=== PATIENT | male | born 1955 | race Caucasian/White ===

== ENCOUNTER 2017-05-07 08:38 | Observation (INO) | payer OTHER ==
[~2017-05-07] VITALS: Ht 182.9 cm; Wt 134.3 kg
[2017-05-07] MEDS ORDERED: SODIUM CHLORIDE 0.9% 1000ML 1,000 ML IV STA (08:50)
--- NOTE | 2017-05-07 08:56 | EMERGENCY ROOM VISIT NOTE ---
History Report prepared by Debra: Kimi Burt Under the Supervision of: Dr. Porter Jeter M.D. First contact with patient: 08:41 Chief Complaint: CHEST PAIN Stated Complaint: CHEST PAIN/DIAPHORETIC History of Present Illness The patient is a 61 year old male who presents to the Emergency Room with complaints of a resolved episode of chest pain that began this morning. The patient states that he was at work this morning drinking coffee when he became diaphoretic. He states that he went to the nurse's office and was given 324 mg of Aspirin. Per EMS the patient was hypotensive upon arrival so they did not administrate any nitroglycerin. The patient states that his pain was alleviated with the aspirin. He states that his last stress test was 10 years ago. The patient states that he is not physically active. He denies any pertinent family history. Source of History: patient Onset: this morning Position: chest Timing: resolved Modifying Factors (Relieving): other (aspirin) Associated Symptoms: + diaphoresis Review of Systems See HPI for pertinent positives & negatives. A total of 10 systems reviewed and were otherwise negative. Past Medical & Surgical Medical Problems: (1) Acute gouty arthritis (2) Chest pain (3) Dyslipidemia (4) Elbow pain, right (5) Gout (6) History of stress test (7) HTN (hypertension) Surgical Problems: (1) History of appendectomy Family History Patient reports no known family medical history. Social History Smoking Status: Never Smoker Alcohol Use: occasionally Drug Use: none Housing Status: lives with family Occupation Status: employed Current/Historical Medications Scheduled Allopurinol (Zyloprim), 2 TABS PO BID Amlodipine (Norvasc), 5 MG PO DAILY Ferrous Sulfate (Kp Ferrous Sulfate), 325 MG PO BID Lisinopril (Zestril), 20 MG PO DAILY Miscellaneous Medications Colchicine (Colchicine), 1 TABS PO Sulindac (Sulindac), 1 TAB PO Allergies Coded Allergies: No Known Allergies (Unverified , none, 09/15/15) Physical Exam Vital Signs Date Time Temp Pulse Resp B/P (MAP) Pulse Ox O2 Delivery O2 Flow Rate FiO2 05/07/17 10:35 97 Room Air 05/07/17 10:02 91 20 119/74 97 Room Air 05/07/17 08:45 97 Room Air 05/07/17 08:45 36.8 98 18 117/77 97 Room Air 05/07/17 08:45 100 Physical Exam GENERAL: Patient is a healthy-appearing well-nourished male HEAD: Normocephalic atraumatic EYES: Ocular movements intact pupils equal and react to light OROPHARYNX mucous membranes are moist no exudates present no erythema or edema present NECK: Supple no nuchal rigidity CHEST: Good equal expansion LUNGS: Clear and equal to auscultation CARDIAC: Normal S1 and S2 ABDOMEN: Soft nontender no guarding BACK: No CVA tenderness EXTREMITIES: No pain upon palpation normal muscle strength in all groups no clubbing cyanosis or edema NEURO: Patient is following commands and answering questions appropriately. Alert and oriented x3 Cranial Nerves 2-12 grossly intact Medical Decision & Procedures ER Provider Diagnostic Interpretation: X-ray results as stated below per interpretation by me and the radiologist: CHEST ONE VIEW PORTABLE HISTORY: Atypical CHEST PAIN COMPARISON: Chest 08/14/2008. FINDINGS: The lungs are clear. The heart remains mildly enlarged. No pleural effusions. No pneumothorax. IMPRESSION: Stable mild cardiomegaly. Electronically signed by: Edil Cheng M.D. 05/07/2017 9:39 AM Dictated Date/Time: 05/07/2017 9:37 AM Laboratory Results 05/07/17 08:55 Red Blood Count 5.00, Mean Corpuscular Volume 88.0, Mean Corpuscular Hemoglobin 28.4, Mean Corpuscular Hemoglobin Concent 32.3, Mean Platelet Volume 9.2, Neutrophils (%) (Auto) 66.5, Lymphocytes (%) (Auto) 23.4, Monocytes (%) (Auto) 6.3, Eosinophils (%) (Auto) 2.7, Basophils (%) (Auto) 0.6, Neutrophils # (Auto) 7.38, Lymphocytes # (Auto) 2.60, Monocytes # (Auto) 0.70, Eosinophils # (Auto) 0.30, Basophils # (Auto) 0.07 05/07/17 08:55 Test 05/07/17 08:55 White Blood Count 11.10 K/uL (4.8-10.8) Red Blood Count 5.00 M/uL (4.7-6.1) Hemoglobin 14.2 g/dL (14.0-18.0) Hematocrit 44.0 % (42-52) Mean Corpuscular Volume 88.0 fL (80-100) Mean Corpuscular Hemoglobin 28.4 pg (25-34) Mean Corpuscular Hemoglobin Concent 32.3 g/dl (32-36) Platelet Count 400 K/uL (130-400) Mean Platelet Volume 9.2 fL (7.4-10.4) Neutrophils (%) (Auto) 66.5 % Lymphocytes (%) (Auto) 23.4 % Monocytes (%) (Auto) 6.3 % Eosinophils (%) (Auto) 2.7 % Basophils (%) (Auto) 0.6 % Neutrophils # (Auto) 7.38 K/uL (1.4-6.5) Lymphocytes # (Auto) 2.60 K/uL (1.2-3.4) Monocytes # (Auto) 0.70 K/uL (0.11-0.59) Eosinophils # (Auto) 0.30 K/uL (0-0.5) Basophils # (Auto) 0.07 K/uL (0-0.2) RDW Standard Deviation 51.3 fL (36.4-46.3) RDW Coefficient of Variation 16.1 % (11.5-14.5) Immature Granulocyte % (Auto) 0.5 % Immature Granulocyte # (Auto) 0.05 K/uL (0.00-0.02) Anion Gap 6.0 mmol/L (3-11) Est Creatinine Clear Calc Drug Dose 80.6 ml/min Estimated GFR () 63.3 Estimated GFR (Non- 54.6 BUN/Creatinine Ratio 10.4 (10-20) Calcium Level 8.9 mg/dl (8.5-10.1) Total Bilirubin 0.4 mg/dl (0.2-1) Direct Bilirubin < 0.1 mg/dl (0-0.2) Aspartate Amino Transf (AST/SGOT) 20 U/L (15-37) Alanine Aminotransferase (ALT/SGPT) 32 U/L (12-78) Alkaline Phosphatase 78 U/L (45-117) Total Creatine Kinase 101 U/L (39-308) Creatine Kinase MB 1.0 ng/ml (0.5-3.6) Creatine Kinase MB Ratio 1.0 (0-3.0) Troponin I < 0.015 ng/ml (0-0.045) Total Protein 7.5 gm/dl (6.4-8.2) Albumin 3.9 gm/dl (3.4-5.0) Lipase 129 U/L (73-393) Labs reviewed by ED physician. Medications Administered Medications (Trade) Dose Ordered Sig/Ailin Route Start Time Stop Time Status Last Admin Dose Admin Sodium Chloride 1,000 ml @ 999 mls/hr Q1H1M STAT IV 05/07/17 08:50 05/07/17 09:59 DC 05/07/17 08:55 999 MLS/HR ECG Indication: chest pain Rate (beats per minute): 99 Rhythm: normal sinus Findings: RBBB, no acute ischemic change, no ectopy ED Course 0841: Past medical records reviewed. The patient was evaluated in room A10. A complete history and physical examination was performed. 0850: Ordered Sodium Chloride 1000 ml @ 999 mls/hr IV. 0953: I reevaluated the patient and he is resting comfortably. I discussed the exam findings with him and I discussed the treatment plan. He verbalized complete understanding and agreement. He is going to be evaluated for further treatment. 1019: I discussed the patients case with Melva Simental PA-C. She is going to evaluate the patient for further treatment. Medical Decision Differential diagnosis: Etiologies such as cardiac ischemia, aortic dissection, pulmonary embolism, pneumonia, pneumothorax, musculoskeletal, infections, pericarditis, myocarditis , esophageal rupture, gastrointestinal, as well as others were entertained. This is a 61-year-old male who presents emergency department diaphoretic and complaining of chest pain. The patient's pain was relieved by aspirin and he is pain-free upon arrival to the emergency department. He is a normal CK-MB and troponin as well as a normal EKG here in the emergency department. Based on the patient's presentation I did discuss the case with the hospitalist service who agreed to admit the patient. Patient was in agreement with the treatment plan. Medication Reconcilliation Current Medication List: was personally reviewed by me Consults Time Called: [phone] Consulting Physician: Melva Simental PA-C Returned Call: [phone] I discussed the patients case with Melva Simental PA-C. She is going to evaluate the patient for further treatment. Impression Primary Impression: Precordial chest pain Scribe Attestation The scribe's documentation has been prepared under my direction and personally reviewed by me in its entirety. I confirm that the note above accurately reflects all work, treatment, procedures, and medical decision making performed by me. Departure Information Dispostion Being Evaluated By Hospitalist Referrals Roberto Cai M.D. (MEDICAL) (PCP)
[2017-05-07 09:07] LABS: BASO % 0.6 %; BASO ABS # 0.07 K/uL (0-0.2); COMPLETE YES; EOS % 2.7 %; IG% 0.5 %; LYMPH % 23.4 %; MEAN CORPUSCULAR HEMOGLOBIN 28.4 pg (25-34); MEAN CORPUSCULAR HGB CONC 32.3 g/dl (32-36); MEAN PLATELET VOLUME 9.2 fL (7.4-10.4); MONO % 6.3 %; NEUT % 66.5 %; PLATELET COUNT 400 K/uL (130-400)
[2017-05-07] MEDS ORDERED: FERR1TAB13 PO (09:10)
[2017-05-07] MEDS ORDERED: ALLO100T PO (09:10)
[2017-05-07] MEDS ORDERED: LISI-725 PO (09:10)
[2017-05-07] MEDS ORDERED: AMLO-110 PO (09:10)
[2017-05-07 09:33] LABS: ALT/SGPT 32 U/L (12-78); AST/SGOT 20 U/L (15-37); BLOOD UREA NITROGEN 15 mg/dl (7-18); BUN/CREATININE RATIO 10.4 (10-20); CALCIUM 8.9 mg/dl (8.5-10.1); CARBON DIOXIDE 30 mmol/L (21-32); CHLORIDE 103 mmol/L (98-107); GLUCOSE 132 mg/dl (70-99); POTASSIUM 4.6 mmol/L (3.5-5.1); SODIUM 139 mmol/L (136-145)
[2017-05-07 09:37] LABS: ALKALINE PHOSPHATASE 78 U/L (45-117)
--- NOTE | 2017-05-07 09:40 | DIAGNOSTIC IMAGING REPORT ---
CHEST ONE VIEW PORTABLE HISTORY: Atypical CHEST PAIN COMPARISON: Chest 08/14/2008. FINDINGS: The lungs are clear. The heart remains mildly enlarged. No pleural effusions. No pneumothorax. IMPRESSION: Stable mild cardiomegaly. Electronically signed by: Edil Cheng M.D. 05/07/2017 9:39 AM Dictated Date/Time: 05/07/2017 9:37 AM
[2017-05-07 10:35] VITALS: O2SAT 97; Ht 182.9 cm; Wt 134.3 kg
[2017-05-07] MEDS ORDERED: POLYETHYLENE (MIRALAX) 17 GM PACK PO PRN (11:15)
[2017-05-07] MEDS ORDERED: NITROGLYCERIN 0.4 MG SL PER TAB CHARGE SL PRN (11:15)
[2017-05-07] MEDS ORDERED: ALUMINUM/MAGNESIUM SUSP 30 ML UDC PO PRN (11:15)
[2017-05-07] MEDS ORDERED: ACETAMINOPHEN 325 MG TAB PO PRN (11:15)
[2017-05-07] MEDS ORDERED: ONDANSETRON INJ 2 MG/ML 2 ML VIAL IV PRN (11:15)
[2017-05-07 11:24] VITALS: BP 102/71; PULSE 117; TEMP 36.7; O2SAT 99
[2017-05-07] MEDS ORDERED: COLC0.6T54 PO (12:05)
[2017-05-07] MEDS ORDERED: CLN200 PO (12:05)
[2017-05-07] MEDS ORDERED: IV FLUIDS COMPLETED PRN (12:15)
[2017-05-07 13:08] LABS: INR 1.1 (0.9-1.1); PARTIAL THROMBOPLASTIN RATIO 0.9; PROTHROMBIN TIME (PATIENT) 11.4 SECONDS (9.0-12.0)
--- NOTE | 2017-05-07 13:16 | History and Physical ---
History & Physical Date & Time of Service: May 07, 2017 at 11:37 Chief Complaint: Chest Pain Primary Care Physician: Michael Looney M.D. History of Present Illness Source: patient Pt is 61 y/o M with PMHx HTN, Gout presents with c/o episode of CP, diaphoresis , lightheadedness. Pt states this morning was at work when had sudden onset of 3 /10 dull pain to distal sternal region with associated diaphoresis and feeling lightheaded. Pt states went to nurse at work and it was reported his BP was 190/ 110 and he was given full dose ASA. Pt was transferred to ER by EMS. Reported while en route he had another episode of diaphoresis and lightheadedness and his BP decreased to 80/60. He was not given nitro secondary to hypotension. Upon arrival to ER pt states is symptom free. No further pain, diaphoresis or lightheadedness. Pt had EKG: NSR 99, incomplete RBBB, WBC: 11, negative trop and CKMB, CPK, normal lipase, normal liver enzymes. CXR: stable mild cardiomegaly, no acute process. Vitals in ER BP:119/74, Pulse: initially 100, down to 91, Resp:18-20, Pulse ox: 97% on RA. Pt denies current or recent indigestion. Pt reports hx indigestion and GERD years ago and he had stress test in 2001 with "negative stress EKG at moderate levels of exercise, no stress echo findings to suggest induced myocardial ischemia". Pt states took GERD meds at that time however hasn't taken for years. Pt states gets some swelling of ankles at the end of the day that resolves with elevation. Hx HGB 12.5 1-2 months ago is reported thinks from donating blood. Pt has started ferrous sulfate BID and is scheduled for recheck with his PCP. Denies any worsening LE edema or hx CHF. Denies vertigo, fever/chills, N/V/D/C, melena, hematochezia, LUNDY, syncope, vision changes, neck pain, SOB, orthopnea, palpitations, cough, sore throat, choking, otalgia, rhinorrhea, paresthesias, weakness, extremity weakness, rashes, urinary symptoms. Past Medical/Surgical History Medical Problems: (1) Acute gouty arthritis Status: Resolved (2) Dyslipidemia Status: Chronic (3) Elbow pain, right Status: Resolved (4) Gout Status: Chronic (5) History of stress test Status: Resolved (6) HTN (hypertension) Status: Chronic Surgical Problems: (1) History of appendectomy Status: Chronic Family History Diabetes mellitus FATHER FH: lung cancer FATHER Hypertension SISTER BROTHER Stroke SISTER, Onset:40 Social History Smoking Status: Never Smoker Smokeless Tobacco Use: herbal snuff Alcohol Use: socially Drug Use: none Marital Status: single Occupational Status: employed Multi-Drug Resistant Organisms History of MDRO: No Allergies Coded Allergies: No Known Allergies (Unverified , none, 09/15/15) Home Medications Scheduled Allopurinol (Zyloprim), 2 TABS PO BID Amlodipine (Norvasc), 5 MG PO DAILY Ferrous Sulfate (Kp Ferrous Sulfate), 325 MG PO BID Lisinopril (Zestril), 20 MG PO DAILY Miscellaneous Medications Colchicine (Colchicine), 1 TABS PO Sulindac (Sulindac), 1 TAB PO Review of Systems See HPI for pertinent positives & negatives. All other systems reviewed and were otherwise negative Physical Exam Vital Signs Date Time Temp Pulse Resp B/P (MAP) Pulse Ox O2 Delivery O2 Flow Rate FiO2 05/07/17 11:24 36.7 117 18 102/71 (81) 99 Room Air 05/07/17 11:04 104 22 119/78 99 05/07/17 10:52 100 05/07/17 10:35 97 Room Air 05/07/17 10:02 91 20 119/74 97 Room Air 05/07/17 08:45 97 Room Air 05/07/17 08:45 36.8 98 18 117/77 97 Room Air 05/07/17 08:45 100 General Appearance: WD/WN, no apparent distress Head: normocephalic, atraumatic Eyes: normal inspection, PERRL, EOMI ENT: hearing grossly normal, + nasal congestion, + pertinent finding ( bilateral cerumen impaction) Neck: supple, no adenopathy, no JVD, trachea midline Respiratory/Chest: chest non-tender, lungs clear, normal breath sounds, no respiratory distress, no accessory muscle use Cardiovascular: regular rate, rhythm (92), no edema, no murmur Abdomen/GI: normal bowel sounds, soft, + tenderness (epigastric without rebound or guarding ) Extremities/Musculoskelatal: normal inspection, no calf tenderness, normal capillary refill, no pedal edema, normal range of motion, non-tender Neurologic/Psych: alert, normal mood/affect, normal reflexes, oriented x 3 Skin: normal color, warm/dry, no rash Diagnostics Laboratory Results Results Past 24 Hours Test 05/07/17 08:55 05/07/17 11:19 Range/Units White Blood Count 11.10 4.8-10.8 K/uL Red Blood Count 5.00 4.7-6.1 M/uL Hemoglobin 14.2 14.0-18.0 g/dL Hematocrit 44.0 42-52 % Mean Corpuscular Volume 88.0 80-100 fL Mean Corpuscular Hemoglobin 28.4 25-34 pg Mean Corpuscular Hemoglobin Concent 32.3 32-36 g/dl Platelet Count 400 130-400 K/uL Mean Platelet Volume 9.2 7.4-10.4 fL Neutrophils (%) (Auto) 66.5 % Lymphocytes (%) (Auto) 23.4 % Monocytes (%) (Auto) 6.3 % Eosinophils (%) (Auto) 2.7 % Basophils (%) (Auto) 0.6 % Neutrophils # (Auto) 7.38 1.4-6.5 K/uL Lymphocytes # (Auto) 2.60 1.2-3.4 K/uL Monocytes # (Auto) 0.70 0.11-0.59 K/uL Eosinophils # (Auto) 0.30 0-0.5 K/uL Basophils # (Auto) 0.07 0-0.2 K/uL RDW Standard Deviation 51.3 36.4-46.3 fL RDW Coefficient of Variation 16.1 11.5-14.5 % Immature Granulocyte % (Auto) 0.5 % Immature Granulocyte # (Auto) 0.05 0.00-0.02 K/uL Sodium Level 139 136-145 mmol/L Potassium Level 4.6 3.5-5.1 mmol/L Chloride Level 103 98-107 mmol/L Carbon Dioxide Level 30 21-32 mmol/L Anion Gap 6.0 3-11 mmol/L Blood Urea Nitrogen 15 7-18 mg/dl Creatinine 1.40 0.60-1.40 mg/dl Est Creatinine Clear Calc Drug Dose 80.6 ml/min Estimated GFR () 63.3 Estimated GFR (Non- 54.6 BUN/Creatinine Ratio 10.4 10-20 Random Glucose 132 70-99 mg/dl Calcium Level 8.9 8.5-10.1 mg/dl Total Bilirubin 0.4 0.2-1 mg/dl Direct Bilirubin < 0.1 0-0.2 mg/dl Aspartate Amino Transf (AST/SGOT) 20 15-37 U/L Alanine Aminotransferase (ALT/SGPT) 32 12-78 U/L Alkaline Phosphatase 78 45-117 U/L Total Creatine Kinase 101 39-308 U/L Creatine Kinase MB 1.0 0.5-3.6 ng/ml Creatine Kinase MB Ratio 1.0 0-3.0 Troponin I < 0.015 0-0.045 ng/ml Total Protein 7.5 6.4-8.2 gm/dl Albumin 3.9 3.4-5.0 gm/dl Lipase 129 73-393 U/L Bedside Glucose 103 70-99 mg/dl Diagnostic Radiology CXR IMPRESSION: Stable mild cardiomegaly. EKG EKG: NSR 99, incomplete RBBB Impression Assessment and Plan Pt is 61 y/o M who presents with episode of diaphoresis, lightheadedness, mild inferior sternal CP with initially increased BP and then hypotensive. Pt currently pain free, and not diaphoretic or lightheaded. CXR negative for infiltrate LIGHTHEADED/DIAPHORESIS/DISTAL STERNAL PAIN: pt may have had vasovagal episode. R/O ACS, PE, cholecystitis, gastritis/GERD -Monitor Vitals - Repeat EKG in am - Will trend cardiac enzymes -ASA -Nitro prn CP and repeat EKG for CP -D-dimer elevated - Ordered CT CHEST R/O PE. If negative will add u/s bilateral LE -Maalox prn GI upset/indigestion - Stress ECHO tomorrow -Consider cardiology consult if needed -lipid panel -U/S gallbladder -NPO after midnight -will add ua to r/o infectious etiology -UTI HTN: -continue Norvasc -continue lisinopril GOUT: -continue allopurinol DVT PROPHYLAXIS -heparin SQ DISPOSITION -admit obs tele -Full Code as per discussion with pt -Follows with Dr Looney for routine care Pt was seen with Dr Whitney Attending Addendum: The patient was seen and examined Admitted with Dizzy spell with profuse sweating and discomfort in epigastrium. Initial DAVID was very high >[address] noted to be low ~70s Feels better following 1 liter of Fluid No significant lab abnormality except very High D Dimer without any Pulmonary Embolism. 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 Dr Anup Whitney Level of Care Telemetry Advanced Directives Existing Living Will: No Existing Power of [employer] Repairer: No Resuscitation Status FULL RESUSCITATION VTE Prophylaxis VTE Risk Assessment Done? Y/N: Yes Risk Level: Moderate Given or contraindicated: Unfractionated heparin SQ Additional Copies To Michael Looney M.D.
[2017-05-07 13:50] VITALS: O2SAT 99
[2017-05-07] MEDS: SODIUM CHLORIDE 0.9% 1000ML 1,000 ML IV SCH ×2 (14:14→23:59)
[2017-05-07] MEDS ORDERED: OPTIRAY 320 IV PRN (14:15)
--- NOTE | 2017-05-07 14:22 | DIAGNOSTIC IMAGING REPORT ---
CT ANGIOGRAM OF THE CHEST CLINICAL HISTORY: Atypical chest pain. Elevated d-dimer. COMPARISON STUDY: Chest x-ray dated 05/07/2017. TECHNIQUE: Following the IV administration of 110 cc of Optiray 320, CT angiogram of the chest was performed from the upper abdomen to the thoracic inlet utilizing the pulmonary embolus protocol. Images are reviewed in the axial, sagittal, and coronal planes. 3-D MIPS images are created and assessed. IV contrast was administered without complication. A dose lowering technique was utilized adhering to the principles of ALARA. The examination is degraded by large body habitus, and by streak artifact from the body wall abutting the CT gantry. The examination is also degraded by motion artifact. CT DOSE: 566.96 mGycm FINDINGS: Thyroid: Imaged portions of the thyroid gland are normal in size and heterogeneous in attenuation. Thoracic aorta: The thoracic aorta is normal in caliber and demonstrates standard 3-vessel arch anatomy. No dissection is seen. Pulmonary vasculature: The pulmonary trunk is normal in caliber. There are no filling defects identified in main, lobar, or proximal segmental pulmonary branches to suggest pulmonary embolus. Evaluation of the peripheral vessels is degraded by streak and motion artifact. Heart: The heart is enlarged and without pericardial effusion. Lungs and pleural spaces: Evaluation of the lung parenchyma is degraded by respiratory motion artifact. There is no airspace consolidation or pleural effusion. Scattered calcified granulomas are observed. Dependent atelectasis is noted. The trachea and central airways are clear. Mediastinum: There is no mediastinal lymphadenopathy. There are scattered calcification containing mediastinal lymph nodes. Krystin: There are calcified right hilar lymph nodes. No hilar adenopathy is seen. Axillae: There is no axillary lymphadenopathy. Upper abdomen: The liver is enlarged and steatotic. Nodularity of the hepatic surface contour suggests early change of cirrhosis. There is perihepatic and perisplenic ascites. There at least moderate ascitic fluid identified in the right upper quadrant below the liver which appears to be at least partially loculated. This fluid appears minimally complex. A small hiatal hernia is observed. Mildly enlarged right cardiophrenic lymph nodes measure up to 9 mm in short axis. Skeletal structures: No lytic or blastic bony lesions are seen. IMPRESSION: 1. Streak and motion degraded examination. 2. There is no evidence of pulmonary embolus in the main, lobar, or proximal segmental pulmonary arteries. 3. There is no airspace consolidation or pleural effusion. 4. Cardiomegaly. 5. The liver is enlarged and steatotic. Nodularity of the hepatic surface contour suggests early changes of cirrhosis. 6. There is perihepatic and perisplenic ascites. A moderate volume of loculated appearing ascitic fluid is partially imaged below the liver. This fluid appears to be minimally complex. Clinical correlation will be required. Abdominal CT could be considered for further assessment if clinically warranted. Electronically signed by: Primo Garcias M.D. 05/07/2017 2:21 PM Dictated Date/Time: 05/07/2017 2:06 PM
[2017-05-07 15:32] LABS: CKMB/CK RATIO 1.1 (0-3.0)
--- NOTE | 2017-05-07 17:06 | DIAGNOSTIC IMAGING REPORT ---
BILATERAL LOWER EXTREMITY VENOUS DOPPLER CLINICAL HISTORY: Chest pain. COMPARISON STUDY: No previous studies for comparison. TECHNIQUE: Sonography of the deep venous system of the bilateral lower extremities was performed. Compression and augmentation were evaluated. FINDINGS: The bilateral common femoral, superficial femoral and popliteal veins were compressible. Augmentation was normal. Flow was shown within the deep calf vessels. IMPRESSION: No evidence of deep venous thrombus within the bilateral lower extremities. Electronically signed by: Louie Munroe M.D. 05/07/2017 5:05 PM Dictated Date/Time: 05/07/2017 5:04 PM
--- NOTE | 2017-05-07 17:07 | DIAGNOSTIC IMAGING REPORT ---
ULTRASOUND RIGHT UPPER QUADRANT ABDOMEN CLINICAL HISTORY: Epigastric abdominal pain. COMPARISON STUDY: Abdominal ultrasound dated 08/14/2008. Chest CT dated 05/07/2017. TECHNIQUE: Real-time, grayscale, and color flow sonography of the right upper quadrant of the abdomen was performed. Images are reviewed in the transverse and longitudinal planes. FINDINGS: Liver: The liver appears enlarged and demonstrates heterogeneously increased echotexture consistent with steatosis. There is mild nodularity of the surface contour suggesting early change of cirrhosis. There is no intrahepatic biliary ductal dilatation. The main portal vein is patent. Gallbladder: Small gallstones are identified. There is no gallbladder wall thickening or pericholecystic fluid. A sonographic Asif's sign is reportedly absent. The common bile duct measures up to 0.5 cm in diameter. Pancreas: Not well visualized due to overlying bowel gas. Right kidney: Survey images of the right kidney demonstrate cortical atrophy. There is no hydronephrosis. Peritoneum: There is a small volume of perihepatic ascites. There is a large heterogeneous solid and cystic structure seen below the right lobe of the liver. This contains internal vascularity on color imaging and measures approximately 25 x 13 x 25 cm. IMPRESSION: 1. There is a large complex mass lesion identified within the mid to right abdomen just below the liver. Further assessed with a contrast-enhanced abdominal CT is recommended. 2. There is a small volume of perihepatic ascites. 3. The liver appears steatotic. Nodularity service contour suggests early change of cirrhosis. 4. Cholelithiasis without sonographic evidence of acute cholecystitis. Findings were communicated to Dr. Whitney at the time of interpretation. Electronically signed by: Primo Garcias M.D. 05/07/2017 5:05 PM Dictated Date/Time: 05/07/2017 4:54 PM
[2017-05-07 17:58] LABS: URINE APPEARANCE CLEAR (CLEAR); URINE BILIRUBIN NEG (NEG); URINE COLOR DK YELLOW; URINE NITRITE NEG (NEG); URINE PH 5.5 (4.5-7.5); URINE SPECIFIC GRAVITY > 1.045 (1.000-1.030); UROBILINOGEN NEG (NEG); ZZUR CULT IF INDIC CLEAN CATCH NO
[2017-05-07 18:02] LABS: MANUAL MICROSCOPIC REQUIRED? NO; REVIEW REQ? NO
[2017-05-07 19:09] VITALS: BP 102/68; PULSE 120; TEMP 36.6; O2SAT 95
[2017-05-07] MEDS ORDERED: FERROUS SULFATE 325 MG TAB PO SCH (21:00)
[2017-05-07] MEDS ORDERED: ALLOPURINOL 100 MG TAB PO SCH (21:00)
[2017-05-07 21:23] LABS: CKMB/CK RATIO 1.3 (0-3.0)
[2017-05-07] MEDS ORDERED: HEPARIN SOD 5000 UNIT/0.5 ML CARP SQ SCH (22:00)
[2017-05-07 23:03] VITALS: BP 134/82; PULSE 117; TEMP 36.8; O2SAT 97
--- NOTE | 2017-05-07 23:35 | DIAGNOSTIC IMAGING REPORT ---
CT OF THE ABDOMEN AND PELVIS WITH CONTRAST CLINICAL HISTORY: Intraperitoneal mass. COMPARISON STUDY: Right upper quadrant ultrasound May 07, 2017. TECHNIQUE: Following IV administration of 65 mL of Optiray-320, axial images of the abdomen and pelvis were obtained from the lung bases to the proximal femurs. Images were reviewed in the axial, sagittal, and coronal planes. IV contrast was administered without complication. A dose lowering technique was utilized adhering to the principles of ALARA. CT DOSE: 2098.41 mGy.cm FINDINGS: Visualized portions of the lower chest demonstrate several prominent cardiophrenic angle nodes that measure up to 1.1 x 1 cm. The liver, spleen, adrenal glands and pancreas are normal as is the right kidney. There is multifocal scarring within the left kidney. There is no hydronephrosis. There is no biliary or pancreatic ductal dilatation. Of note, there is a large anterior upper abdominal mass that measures approximately 25.8 x 16.9 x 24 cm and is located inferior to the left hepatic lobe and along the right lateral aspect of the stomach. No fat plane between this mass and the stomach is noted. This mass is heterogeneous and contains areas of increased attenuation within the inferior aspect of the mass which favor hemorrhage. There is a moderate amount of fluid within the abdomen and pelvis which measures greater than water attenuation. This may reflect hemoperitoneum. Small gallstones are noted within the gallbladder. There is left colon diverticulosis without evidence for acute diverticulitis. No suspicious osseous lesions are present. A fat-containing left inguinal hernia is noted. There is no pneumatosis, free air or portal venous gas. Small omental nodules are noted which measure up to 6 mm. Contrast within the bladder from recent contrast-enhanced chest CT. IMPRESSION: 1. Large heterogeneous upper abdominal mass that measures 25.8 x 16.9 x 24 cm, located inferior to the left hepatic lobe and along the right lateral aspect of the stomach. Areas of increased attenuation within this mass are suggestive of hemorrhage and moderate abdominal and pelvic fluid is worrisome for hemoperitoneum resulting from rupture of this mass. Urgent surgical consultation is recommended. 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 Discussed with Dr. Amador at 11:15 PM on May 07, 2017. 2. Several indeterminate tiny omental nodules and prominent cardiophrenic angle lymph nodes. Electronically signed by: Louie Munroe M.D. 05/07/2017 11:34 PM Dictated Date/Time: 05/07/2017 10:57 PM
[2017-05-08 00:21] VITALS: BP 129/89; PULSE 108; TEMP 36.8; O2SAT 95
[2017-05-08 01:04] LABS: HEMATOCRIT 33.5 % (42-52)
--- NOTE | 2017-05-08 01:57 | Progress Note ---
Internal Med Progress Note Date of Service: May 08, 2017. Provider Documentation: I was earlier made aware by Dr. Munroe (radiologist vest front presser) of abnormal CT abdomen pelvis findings. Possible bleeding intraperitoneal tumor, possible hemoperitoneum on CT vs GI stromal tumor. Abdominal pain better than admission as per patient. SBP 120s, CR 110s No peritoneal signs on my exam. Hg 14 -> 10 I discussed case with Dr[address] Mijares ([id number]) over the phone. After reviewing case and images, Dr. Mijares later recommended patient transfer to tertiary care center for further evaluation and management. Patient kindly accepted for transfer at [facility] by surgeon on-call, Dr. Almanzar. Patient updated of developments and was agreeable to the plan of care. Vital Signs: Lab Results:
--- NOTE | 2017-05-08 02:13 | Medical Consult ---
Consultation Note Date of Service May 08, 2017. Consultation Note 61 year old admitted with epigastric pain and near syncope, workup revealed abdominal mass. CT performed this evening showed very large (26cm) tumor with likely hemorrhage. Consulted by hospitalist, after reviewing films, labs and vital signs, recommend urgent transfer to tertiary facility for further evaluation and treatment given size of tumor and likelihood of hemorrhage. See report below. CT OF THE ABDOMEN AND PELVIS WITH CONTRAST CLINICAL HISTORY: Intraperitoneal mass. COMPARISON STUDY: Right upper quadrant ultrasound May 07, 2017. TECHNIQUE: Following IV administration of 65 mL of Optiray-320, axial images of the abdomen and pelvis were obtained from the lung bases to the proximal femurs. Images were reviewed in the axial, sagittal, and coronal planes. IV contrast was administered without complication. A dose lowering technique was utilized adhering to the principles of ALARA. CT DOSE: 2098.41 mGy.cm FINDINGS: Visualized portions of the lower chest demonstrate several prominent cardiophrenic angle nodes that measure up to 1.1 x 1 cm. The liver, spleen, adrenal glands and pancreas are normal as is the right kidney. There is multifocal scarring within the left kidney. There is no hydronephrosis. There is no biliary or pancreatic ductal dilatation. Of note, there is a large anterior upper abdominal mass that measures approximately 25.8 x 16.9 x 24 cm and is located inferior to the left hepatic lobe and along the right lateral aspect of the stomach. No fat plane between this mass and the stomach is noted. This mass is heterogeneous and contains areas of increased attenuation within the inferior aspect of the mass which favor hemorrhage. There is a moderate amount of fluid within the abdomen and pelvis which measures greater than water attenuation. This may reflect hemoperitoneum. Small gallstones are noted within the gallbladder. There is left colon diverticulosis without evidence for acute diverticulitis. No suspicious osseous lesions are present. A fat-containing left inguinal hernia is noted. There is no pneumatosis, free air or portal venous gas. Small omental nodules are noted which measure up to 6 mm. Contrast within the bladder from recent contrast-enhanced chest CT. IMPRESSION: 1. Large heterogeneous upper abdominal mass that measures 25.8 x 16.9 x 24 cm, located inferior to the left hepatic lobe and along the right lateral aspect of the stomach. Areas of increased attenuation within this mass are suggestive of hemorrhage and moderate abdominal and pelvic fluid is worrisome for hemoperitoneum resulting from rupture of this mass. Urgent surgical consultation is recommended. 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 Discussed with Dr. Amador at 11:15 PM on May 07, 2017. 2. Several indeterminate tiny omental nodules and prominent cardiophrenic angle lymph nodes.
[2017-05-08 03:00] VITALS: BP 119/74; PULSE 115; TEMP 36.9; O2SAT 97
[2017-05-08 03:03] LABS: HEMATOCRIT 32.4 % (42-52)
[2017-05-08 04:06] VITALS: BP 144/84; PULSE 117; TEMP 36.8; O2SAT 98
--- NOTE | 2017-05-08 04:44 | DISCHARGE SUMMARY ---
ADMISSION DIAGNOSES: Lightheadedness, diaphoresis, hypertension, gout. DISCHARGE DIAGNOSIS: Bleeding intra-abdominal tumor, possible hemoperitoneum. DISPOSITION: Transfer to [facility]. HOSPITAL COURSE: Briefly, patient came to the hospital because of sudden onset of dull pain, sternum going to his belly with diaphoresis and lightheadedness. SBP initially high in the ER, at some point 80s. CT chest negative for pulmonary embolism; however, liver was found to be enlarged and steatotic. There was note of perihepatic and perisplenic ascites, loculated ascitic fluid partially imaged below the liver, minimally complex fluid. Abdominal CT recommended. Abdominal CT showed large heterogeneous upper abdominal mass measuring 25.8 x 16.9 x 24 cm inferior to the left hepatic lobe and along the right lateral aspect of the stomach. Areas of increased attenuation within the mass are suggestive of hemorrhage. Moderate abdominal pelvic fluid worrisome for hemoperitoneum resulting from rupture of the mass. Surgical consultation recommended. [facility] surgeon on-call recommended transfer to tertiary center for further evaluation and management of possible bleeding intra-abdominal tumor. Hemoglobin noted to be 14.2 on admission, stable at 10 in 2 subsequent determinations. Patient kindly accepted for transfer by Dr. Almanzar, [facility] surgeon on-call. Patient was amenable to plan of care. Comfortable at time of discharge via ALS. Total time to dictate this discharge summary was 10 minutes. ROSIE
[2017-05-08] MEDS ORDERED: ASPIRIN 81 MG ECTAB PO SCH (09:00)
[2017-05-08] MEDS ORDERED: AMLODIPINE BESYLATE 5 MG TAB PO SCH (09:00)
[2017-05-08] MEDS ORDERED: LISINOPRIL 20 MG TAB PO SCH (09:00)
== END 2017-05-08 04:45 | disposition short-term general hospital (02) ==
LOC: EDBD 08:38 → C.EDA 08:41 → C.MED 10:43 → ENRESERV 10:56
PROVIDERS: ADMIT Internal Medicine; ATTEND Internal Medicine
DX: R19.07 Generalized intra-abdominal and pelvic swelling, mass and lump (principal); R58 Hemorrhage, not elsewhere classified; E78.5 Hyperlipidemia, unspecified; I10 Essential (primary) hypertension; M10.9 Gout, unspecified; Z90.89 Acquired absence of other organs; Z79.899 Other long term (current) drug therapy; Z83.3 Family history of diabetes mellitus; Z80.1 Family history of malignant neoplasm of trachea, bronchus and lung; Z82.49 Family history of ischemic heart disease and other diseases of the circulatory system; Z82.3 Family history of stroke

== ENCOUNTER → 2017-09-28 | Outpatient (CLI) | payer OTHER ==
[~2017-09-28] MED LIST: ALLO100T PO; AMLO-110 PO; CLN200 PO; COLC0.6T54 PO; FERR1TAB13 PO; LISI-725 PO
--- NOTE | 2017-09-28 12:27 | DIAGNOSTIC IMAGING REPORT ---
CT SCAN OF THE ABDOMEN AND PELVIS WITHOUT IV CONTRAST CLINICAL HISTORY: Gastrointestinal stromal tumor follow-up. COMPARISON STUDY: Abdominal CT dated 05/07/2017. TECHNIQUE: CT scan of the abdomen and pelvis is performed from the lung bases to the proximal femora. Images are reviewed in the axial, sagittal, and coronal planes. IV contrast was not administered for this examination as per the referring clinician. Note that the examination was performed in significantly suboptimal fashion without IV contrast. Oral contrast was utilized. A dose lowering technique was utilized adhering to the principles of ALARA. CT DOSE: 1698.50 mGy.cm FINDINGS: Lung bases: The heart is normal in size and without pericardial effusion. Calcified right hilar nodes are partially visualized. There is a moderate left pleural effusion with associated atelectasis. Only trace right pleural effusion is identified. A calcific granuloma is noted in the right middle lobe. Liver: The unenhanced liver is normal in size, contour, and attenuation. There is no intrahepatic biliary ductal dilatation. No hepatic lesion is identified on this unenhanced examination. Gallbladder: Calcified gallstones are identified. There is no CT evidence of acute cholecystitis. Spleen: Normal in size and attenuation. Pancreas: Unremarkable. Adrenal glands: Unremarkable. Kidneys: The unenhanced kidneys are atrophic and without hydronephrosis. There are no renal calculi identified. There is no evidence of contour deforming renal mass lesion. Abdominal vasculature: The abdominal aorta is normal in course and caliber noting moderate atherosclerotic calcification. Bowel: There is mild to moderate colonic diverticulosis without CT evidence of acute diverticulitis. No bowel obstruction is seen. The appendix is normal as visualized. Peritoneum: A heterogeneous and predominantly low-attenuation mass lesion is again seen in the mid to upper abdomen, and is seen along the inferior left lobe of liver and along the anterior/inferior margin of the stomach. This measures approximately 27 x 20 x 28 cm and has modestly increased in size from 05/07/2017. Foci of necrosis are suggested. Hyperdense foci within this lesion identified and may represent intralesional hemorrhage. There is a small to moderate volume of abdominopelvic ascites. Foci of peritoneal nodularity are again seen in the left upper quadrant image #198 and in the right lower quadrant on image #326. No intraperitoneal free air is seen. There is periumbilical soft tissue induration. Lymphadenopathy: Prominent right cardiophrenic nodes are similar to previous. There is no mesenteric, retroperitoneal, pelvic, or inguinal lymphadenopathy. Pelvic viscera: The bladder is normal as visualized. The prostate and seminal vesicles are unremarkable. There are bilateral inguinal hernias. A portion of the bladder is contained within the right inguinal hernia. Skeletal structures: The skeletal structures are osteopenic. No lytic or blastic lesions are seen. There are bilateral pars defects at L5. IMPRESSION: 1. Increase in size of a large heterogeneous low-attenuation mass lesion in the upper abdomen as compared to 05/07/2017. 2. Peritoneal nodularity is again seen in the left upper quadrant and the right lower quadrant. Additionally, there is a small to moderate volume of abdominopelvic ascites. Carcinomatosis is not excluded. 3. Moderate left pleural effusion, new from 05/07/2017. 4. No hepatic lesion is identified on this unenhanced examination. 5. Prominent right cardiophrenic lymph nodes are similar to previous. 6. Cholelithiasis. 7. Additional findings as above. Electronically signed by: Primo Garcias M.D. 09/28/2017 12:25 PM Dictated Date/Time: 09/28/2017 12:12 PM
== END | disposition home or self-care (01) ==
LOC: C.CTS 11:44
PROVIDERS: ATTEND Physician Assistant
DX: C49.A0 Gastrointestinal stromal tumor, unspecified site (principal); R18.8 Other ascites; K66.8 Other specified disorders of peritoneum